=== PATIENT | male | born 1965 | race Two or more races ===

== ENCOUNTER 2017-05-27 20:18 | Emergency (ER) | payer OTHER ==
[~2017-05-27] VITALS: Ht 175.3 cm; Wt 117.0 kg
== END 2017-05-27 21:40 | disposition home or self-care (01) ==
LOC: CFTX 20:18 → CED 20:18 → CFTX 21:36
DX: S61.012A Laceration without foreign body of left thumb without damage to nail, initial encounter (principal); E11.9 Type 2 diabetes mellitus without complications; I10 Essential (primary) hypertension; Z88.6 Allergy status to analgesic agent; X58.XXXA Exposure to other specified factors, initial encounter
CPT/HCPCS: 12001; 82947; 99283